=== PATIENT | female | born 1970 | race Caucasian/White ===

== ENCOUNTER 2018-03-09 06:14 | Day surgery (SDC) | payer OTHER ==
[~2018-03-09 06:14] MED LIST: AMILODIPINE PO; COZAAR25 MG PO; FAMOTIDINE40 MG PO; FOLIC ACID1 MG PO; INTEGRA CAPSUL1 EACH PO; LANTUS SOL100 UNIT/1; ZOCOR PO
== END 2018-03-09 12:00 | disposition home or self-care (01) ==
LOC: CIR.AMB 06:14
DX: G56.02 Carpal tunnel syndrome, left upper limb (principal)

== ENCOUNTER 2020-01-17 05:42 | Day surgery (SDC) | payer OTHER ==
[~2020-01-17 05:42] MED LIST changes: +CALTRATE PO; +COZAAR100 MG PO; +HUMLOG; +LEVOTHYROXINE25 MCG PO; +SIMVASTAT PO; +SYNTHROID200 MCG PO; +VITAMIN D PO; +[UNRECOGNIZED DRUG - OTHER] PO; +[UNRECOGNIZED DRUG - OTHER] PO
== END 2020-01-17 11:10 | disposition home or self-care (01) ==
LOC: CIR.AMB 05:42 → EDSTATUS 11:15 → O/R 11:15 → CIR.AMB 11:15
PROVIDERS: ATTEND Orthopaedic Surgery Hand Surgery
DX: G56.01 Carpal tunnel syndrome, right upper limb (principal); Z20.828 Contact with and (suspected) exposure to other viral communicable diseases